=== PATIENT | female | born 1980 | race Two or more races ===

== ENCOUNTER 2019-10-20 16:17 | Inpatient (IN) | payer OTHER ==
[~2019-10-20] VITALS: Ht 160 cm; Wt 120.2 kg
[~2019-10-20 16:17] MED LIST: AVELOX ABC PAC400 MG; PREDNISONE IN5 MG/ML
[2019-10-20] MEDS ORDERED: SYNTHROID75 MCG (20:05)
[2019-10-20] MEDS ORDERED: CHILDREN'S ASPI81 MG (20:05)
[2019-10-20] MEDS ORDERED: PRENATAL TABLE1 EACH PO (20:05)
== END 2019-10-23 14:30 | disposition home or self-care (01) | DRG 833 ==
LOC: EDBD 16:17 → LDR 16:17
PROVIDERS: ADMIT Specialist
PROC: 4A1HXCZ Monitoring of Products of Conception, Cardiac Rate, External Approach (ICD-10-PCS; principal; 2019-10-20)
DX: O14.03 Mild to moderate pre-eclampsia, third trimester (principal); O24.410 Gestational diabetes mellitus in pregnancy, diet controlled

== ENCOUNTER 2019-10-30 01:08 | Inpatient (IN) | payer OTHER ==
[~2019-10-30] VITALS: Ht 129.5 cm; Wt 2.7 kg
[~2019-10-30 01:08] MED LIST changes: +CHILDREN'S ASPI81 MG; +PRENATAL TABLE1 EACH PO; +SYNTHROID75 MCG
[2019-10-30] MEDS ORDERED: ALDOMET250 MG/5 M PO (02:22)
[2019-10-30] MEDS ORDERED: INTEGRA PLUS C1 EACH PO (02:22)
[2019-11-03] MEDS ORDERED: METHYLDOPA500 MG PO (07:59)
== END 2019-11-06 14:53 | disposition home or self-care (01) | DRG 788 ==
LOC: LDR 01:08 → O/R 11-04 10:11 → OB/GYN 11-04 11:45
PROVIDERS: ADMIT Specialist
PROC: 4A1HXFZ Monitoring of Products of Conception, Cardiac Rhythm, External Approach (ICD-10-PCS; 2019-11-04)
PROC: 3E033VJ Introduction of Other Hormone into Peripheral Vein, Percutaneous Approach (ICD-10-PCS; 2019-11-04)
PROC: 10D00Z1 Extraction of Products of Conception, Low, Open Approach (ICD-10-PCS; principal; 2019-11-04 07:00)
DX: O32.2XX0 Maternal care for transverse and oblique lie, not applicable or unspecified (principal); O24.420 Gestational diabetes mellitus in childbirth, diet controlled; O10.12 Pre-existing hypertensive heart disease complicating childbirth; I11.9 Hypertensive heart disease without heart failure; Z37.0 Single live birth; Z3A.37 37 weeks gestation of pregnancy